=== PATIENT | female | born 1940 | race Caucasian/White ===

== ENCOUNTER 2016-09-25 13:12 | Emergency (ER) | payer OTHER ==
[~2016-09-25] VITALS: Ht 157.5 cm; Wt 70.3 kg
[2016-09-25 13:32] VITALS: BP 122/77
== END 2016-09-25 15:11 | disposition home or self-care (01) ==
LOC: ER 13:12
DX: S63.91XA Sprain of unspecified part of right wrist and hand, initial encounter (principal); Z88.6 Allergy status to analgesic agent; W01.0XXA Fall on same level from slipping, tripping and stumbling without subsequent striking against object, initial encounter; Y93.89 Activity, other specified; Y99.8 Other external cause status; Y92.098 Other place in other non-institutional residence as the place of occurrence of the external cause
CPT/HCPCS: 73130

== ENCOUNTER 2025-02-05 11:35 | Emergency (ER) | payer OTHER, MEDICAID ==
[~2025-02-05] VITALS: Ht 157.5 cm; Wt 65.9 kg
--- NOTE | 2025-02-05 12:05 | ED.PDOC ---
Dhruv. trauma (HPI) HPI Comments 84 y/o F, with PMHx of HTN and anxiety presents to the ED for CC of s/p fall injury. Patient states, she had a trip and fall on stairs yesterday (02/05/25) causing her to fall forward. Following trauma, patient c/o pain to her right knee and being unable to bear weight onto her right extremity. Patient denies abrasions, head injury, nausea, vomiting, or headache. No other symptoms or modifiers present at this time. Chief Complaint: Fall Injury Time Seen by MD: 11:58 Primary Care Provider: ROSA Reviewed notes: Nurses Notes, Medications, Allergies Allergies: Coded Allergies: Codeine (Verified Allergy, Mild, VOMITING, 07/10/12) Naproxen (Verified Allergy, Mild, HIVES, 07/10/12) Home Meds No Active Prescriptions or Reported Meds Information Source: Patient Mode of Arrival: Ambulatory Severity: Moderate Timing: Days Duration: Since onset Prehospital treatment: None Location: (R) Knee Location of laceration: None Mechanism: Fall Associated signs and symtoms: None Past Medical History PAST MEDICAL HISTORY: Anxiety, Cancer, HTN Surgical History: Cholecystectomy, Hysterectomy 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 Pertinent REFRIGERATOR REPAIR TECHNICIAN History Family History Family History: Reviewed,noncontributory to illness Social History Smoker: Non-Smoker Alcohol: Denies ETOH Use Drugs: Denies Drug Use Lives In: Home Constitutional: denies: chills, diaphoresis, fatigue, fever, malaise, sweats, weakness, others EENTM: denies: blurred vision, double vision, ear bleeding, ear discharge, ear drainage, ear pain, ear ringing, eye pain, eye redness, hearing loss, mouth pain, mouth swelling, nasal discharge, nose bleeding, nose congestion, nose pain, photophobia, tearing, throat pain, throat swelling, voice changes, others Respiratory: denies: cough, hemoptysis, orthopnea, SOB at rest, shortness of breath, SOB with excertion, stridor, wheezing, others Cardiovascular: denies: chest pain, dizzy spells, diaphoresis, Dyspnea on exertion, edema, irregular heart beat, left arm pain, lightheadedness, palpitations, PND, syncope, others Gastrointestinal: denies: abdomen distended, abdominal pain, blood streaked bowels, constipated, diarrhea, dysphagia, difficulty swallowing, hematemesis, melena, nausea, poor appetite, poor fluid intake, rectal bleeding, rectal pain, vomiting, others Genitourinary: denies: abnormal vagina bleeding, burning, dyspareunia, dysuria, flank pain, frequency, hematuria, incontinence, pain, , vagina discharge, urgency, others Neurological: denies: dizziness, fainting, headache, left sided numbness, left sided weakness, numbness, paresthesia, pre-existing deficit, right sided numbness, right sided weakness, seizure, speech problems, tingling, tremors, weakness, others Musculoskeletal: reports: others (right knee pain); denies: back pain, gout, joint pain, joint swelling, muscle pain, muscle stiffness, neck pain Integumetry: denies: bruises, change in color, change in hair/nails, dryness, laceration, lesions, lumps, rash, wounds, others Allergic/Immunocompromised: denies: Difficulty Healing, Frequent Infections, Hives, Itching, others Hematologic/Lymphatic: denies: anemia, blood clots, easy bleeding, easy bruising, swollen glands, others Endocrine: denies: excessive hunger, excessive sweating, excessive thirst, excessive urination, flushing, intolerance to cold, intolerance to heat, unexplained weight gain, unexplained weight loss, others Psychiatric: denies: anxiety, bipolar disorder, depression, hopeless, panic disorder, schizophrenia, sleepless, suicidal, others All Other Systems: Reviewed and Negative Physical Exam General Appearance: Mild Distress HEENT: Normal ENT Inspection, Pharynx Normal Neck: Full Range of Motion, Non-Tender, Normal, Normal Inspection Respiratory: Chest Non-Tender, Lungs Clear, No Accessory Muscle Use, No Respiratory Distress, Normal Breath Sounds Cardiovascular: No Edema, No Murmur, No Gallop, Normal Peripheral Pulses, Regular Rate/Rhythm Breast Exam: Deferred Gastrointestinal: No Organomegaly, Non Tender, No Pulsatile Mass, Normal Bowel Sounds, Soft Genitalia: Deferred Pelvic: Deferred Rectal: Deferred Extremities: No calf tenderness, Normal capillary refill, No pedal edema Musculoskeletal : Location: Right Extremity Location: Knee Apperance: Tenderness Neurologic: Alert, house player II-XII nml as Tested, No Motor Deficits, Normal Affect, Normal Mood, No Sensory Deficits Cerebellar Function: Normal Reflexes: Normal Skin: Dry, Normal Color, Warm Lymphatic: No Adenopathy Was a procedure done? Was a procedure done?: No Differential Diagnosis Multiple Trauma: Fractures, Hematoma X-Ray, Labs, Meds, VS Vital Signs Date Time Temp Pulse Resp B/P (MAP) Pulse Ox O2 Delivery O2 Flow Rate FiO2 02/05/25 11:40 97.3 96 18 119/72 95 97.3 CAT scan of the right knee shows: IMPRESSION: 1. No acute fracture or dislocation in the right knee. 2. Mild osteoarthritis. 3. Small knee joint effusion. No lipohemarthrosis. At this time, the patient is being discharged The patient is being placed in a knee immobilizer The patient will return to the emergency department's condition worsens We did discuss the findings with the patient and her They understand and agree with the management. Images Reviewed?: Images reviewed and evaluated by me Time of 1ST Reevaluation: 12:22 Reevaluation 1ST: Unchanged Patient Education/Counseling: Diagnosis, Treatment, Prognosis, Need For Follow Up Family Education/Counseling: Diagnosis, Treatment, Prognosis, Need For Follow Up Departure 1 Departure Time of Disposition: 14:16 Impression: Primary Impression: Right knee sprain Qualified Codes: S83.91XA - Sprain of unspecified site of right knee, initial encounter Additional Impression: History of fall Disposition: 01 HOME / SELF CARE / HOMELESS Condition: Fair e-Prescriptions No Active Prescriptions or Reported Meds Discharged With: Self, Spouse Critical Care Note Critical Care Time?: No Stability Stability form required: No Heart Score Heart Score: Heart Score Response (Comments) Value History N/A 0 EKG N/A 0 Age N/A 0 Risk Factors N/A 0 Troponin N/A 0 Total 0 I personally scribed for ERIC ECHEVARRIA MD ([email or web address]) on 02/05/25 at 12:05. Electronically submitted by Zahira Weinstein [email or web address]). ERIC ECHEVARRIA MD Feb 05, 2025 12:05 MERCEDES GREENWOOD MD Feb 05, 2025 14:17
--- NOTE | 2025-02-05 12:55 | DVH ---
EXAM: XY R KNEE 3V XRAY HISTORY: fall COMPARISON: None TECHNIQUE: 3 views of the right knee were performed. FINDINGS: Questionable fracture of the lateral femoral condyle. Moderate to severe lateral compartment joint s pace narrowing with osteophytes. Lipohemarthrosis. IMPRESSION: 1. Questionable fracture of the lateral femoral condyle. Lipohemarthrosis. CT knee recommended for f urther evaluation. 2. Osteoarthritis.
--- NOTE | 2025-02-05 12:58 | DVH ---
INDICATION: fall TECHNIQUE: Single AP view of the pelvis was obtained. COMPARISON: None FINDINGS: The pelvic ring appears intact.There is no evidence of acute fracture or dislocation.Bilate ral hip joints appear unremarkable without evidence of joint space narrowing. The lower lumbar spine and bilateral sacroiliac joints appear unremarkable without evidence of fusion.The alignment is anato mical.The surrounding soft tissues are unremarkable. IMPRESSION: no acute fracture
--- NOTE | 2025-02-05 13:57 | DVH ---
CLINICAL INDICATION: better evaluate x-ray findings TECHNIQUE: Noncontrast CT of the right knee was performed. Sagittal and coronal reformatted images ar e provided. COMPARISON: Radiograph of the right knee performed same date CT Dose: CTDI volume is 0.07 mGy. Dose-length product is 252.96 mGy*cm FINDINGS: No fracture or dislocation. Mild medial and lateral compartment joint space narrowing. Tri compartment osteophytes. There is a small knee joint effusion but no lipohemarthrosis. Previously se en apparent lipohemarthrosis on radiographs corresponds to normal fat in the quadriceps fat pad. IMPRESSION: 1. No acute fracture or dislocation in the right knee. 2. Mild osteoarthritis. 3. Small knee joint effusion. No lipohemarthrosis. HS:Y All CT scans at this medical facility are performed using dose modulation techniques as appropriate t o a performed exam including the following: Automated exposure control was utilized; adjustment of th e MA and/or KV according to patient size; and use of iterative reconstruction technique.
[2025-02-05 15:35] VITALS: BP 129/75; PULSE 74; RESP 16; TEMP 98; O2SAT 95
[2025-02-05] MEDS: HYDROcodone-ACET 5/325MG TAB PO ONE (15:38)
== END 2025-02-05 15:40 | disposition home or self-care (01) ==
LOC: ER 11:35
DX: S83.8X1A Sprain of other specified parts of right knee, initial encounter (principal); I10 Essential (primary) hypertension; F41.9 Anxiety disorder, unspecified; M17.11 Unilateral primary osteoarthritis, right knee; Z90.49 Acquired absence of other specified parts of digestive tract; Z90.710 Acquired absence of both cervix and uterus; Z88.5 Allergy status to narcotic agent; Z88.6 Allergy status to analgesic agent; W10.8XXA Fall (on) (from) other stairs and steps, initial encounter; Y93.89 Activity, other specified; Y92.89 Other specified places as the place of occurrence of the external cause; Y99.8 Other external cause status
CPT/HCPCS: 29505; 73502; 73562; 73700